=== PATIENT | female | born 1985 | race Asian ===

== ENCOUNTER 2019-11-12 06:16 | Inpatient (IN) | payer BC ==
[2019-11-12] MEDS ORDERED: Sodium Chloride 0.9% 10 ML Syringe FLUSH PRN (06:20)
[2019-11-12] MEDS ORDERED: Ondansetron 4 MG/2 ML SDV IVPUSH PRN (06:20)
[2019-11-12] MEDS ORDERED: Nalbuphine 10 MG/1 ML Vial IVPUSH PRN (06:20)
[2019-11-12] MEDS ORDERED: Lactated Ringers 1,000 ML IV SCH (06:30)
[2019-11-12] MEDS ORDERED: Oxytocin/Lactated Ringers 10 UNIT/1,000 ML BAG IV SCH ×3 (06:30→15:50)
[2019-11-12] MEDS ORDERED: Ampicillin 2 GM in Sodium Chloride 0.9% 100 ML IV ONE (07:00)
--- NOTE | 2019-11-12 08:49 | PCM.LDHP ---
L&D History of Present Illness - General Date of Service: 11/12/19 Admit Problem/Dx: Patient Status Order with Admit Dx/Problem 11/12/19 06:22 Patient Status [ADT] Routine Admission Diagnosis/Problem Admission Diagnosis/Problem Source of Information: Patient History Limitations: Reports: No Limitations - History of Present Illness Introduction:: Alecia Vogel is a 34-year-old -0-0-1 at 36 weeks 4 days (ARGENIS 12/06/2019) by LMP consistent with 7-week ultrasound who presents for evaluation of gross rupture of membranes. She noted that at around 5:30 AM she had a large gush of fluid and has continuous leaking of fluid since then. She reports that her contractions were somewhat irregular about every 10 minutes but they have been getting somewhat closer together and stronger since rupture of membranes. She has been feeling baby move with contractions but has not has felt significant movement outside of the contractions. She denies any other significant problems during the . Timing/Duration: Reports: sudden onset (At around 5:30 AM), intermittent ( Contractions about every 10 minutes) Location, : Reports: Lower back, Pelvic Quality: Reports: Throbbing Severity: Mild Improves with: Reports: None Worsens with: Reports: None Associated Symptoms: Reports: vaginal fluid, large amount. Denies: vaginal bleeding, vaginal discharge Present Illness Comments:: Alecia Vogel is a 34-year-old -0-0-1 at 36 weeks 4 days (ARGENIS 12/06/2019) by LMP consistent with a 7-week ultrasound. She has had routine care with Dr. Butt starting at 11 weeks gestational age. Her has been overall uncomplicated but she did have pelvic pressure throughout the . She had GBS bacteria found in the urine on 05/17/2019. She received the flu shot on 10/21/2019 and Tdap on 10/11/2019. She declined to have testing for STIs during this . Her has been complicated by: * GBS positive with GBS bacteria found in the urine on 05/17/2019 * First child with autism. Patient had a normal [facility] genetic screening testing performed. 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 [facility] history G1: 01/11/2012, of female at 40 weeks gestational age, weight 6 pounds 8 ounces, epidural for anesthesia, no complications during , child affected by autism G2: Current labs Blood type: B+ Antibody screen: Negative First trimester hematocrit/hemoglobin: 39.4%/13.8 on 05/17/2019 Platelets: 317 on 05/17/2019 Urine culture: GBS bacteriuria with 600 CFU Rubella status: Immune Hepatitis B surface antigen: Declined RPR: Negative HIV: Declined Gonorrhea: Declined Chlamydia: Declined Genetic testing: Normal [facility] genetic testing anatomy ultrasound: Normal anatomy, posterior placenta, no previa One hour glucose tolerance test: 70 Second trimester hematocrit/hemoglobin: 37.2%/12.9 on 08/31/2019 Platelets: 290 on 08/31/2019 GBS status: Positive with GBS bacteria from urine culture on 05/17/2019 - Related Data Allergies/Adverse Reactions: Allergies Allergy/AdvReac Type Severity Reaction Status Date / Time No Known Allergies Allergy Verified 11/12/19 06:32 Home Medications: Home Meds Mv-Mn/Iron/FA/Herbal/Digestive [ One Tablet] 1 each PO DAILY 11/12/19 [ History] Past Medical History [facility] MACH[employer] [facility]IR[facility] History: Reports: : 2 Para: 1 - Past Surgical History HEENT Surgical History: Reports: Oral Surgery (Frenulectomy) Other HEENT Surgeries/Procedures: frenotomy Social & Family History - Tobacco Use Smoking Status *Q: Never Smoker Second Hand Smoke Exposure: No - Tobacco Core Measures Tobacco Use/Smoking Within Last 30 Days: No Smokeless Tobacco Use in Last 30 Days: No - Alcohol Use Alcohol Use History: No - Recreational Drug Use Recreational Drug Use: No - Living Situation & Occupation Living situation: Reports: , with Spouse, with Family Occupation: Employed H&P Review of Systems - Review of Systems: Review Of Systems: See Below General: Denies: Fever, Chills, Malaise, Weakness, Fatigue HEENT: Denies: Rhinitis, Post Nasal Drip, Sinus Congestion, Sore Throat, Visual Changes Pulmonary: Denies: Shortness of Breath, Wheezing, Pleuritic Chest Pain, Cough Cardiovascular: Denies: Chest Pain, Palpitations, Dyspnea on Exertion, Orthopnea Gastrointestinal: Reports: Constipation. Denies: Abdominal Pain, Diarrhea, Nausea, Vomiting Genitourinary: Denies: Dysuria, Frequency, Burning, Pain, Urgency Skin: Reports: Other (Varicose veins in legs bilaterally). Denies: Rash, Lesions Psychiatric: Denies: Depression, Anxiety Neurological: Denies: Headache L&D Exam - Exam Exam: See Below - Vital Signs Vital Signs: Last Vital Signs Temp 36.3 C 11/12/19 06:22 Pulse 74 11/12/19 07:32 Resp 15 11/12/19 06:22 BP 127/80 11/12/19 06:22 Pulse Ox 100 11/12/19 06:22 Weight: 72.439 kg - OB Specific Contraction Duration (sec): 45-60 Contraction Frequency (min): 3-10 Contraction Intensity: Mild to Moderate Movement: Active Heart Tones: Present Heart Tones per Min: 135 (+15 x 15 accelerations, no decelerations) Presentation: Vertex Estimated Weight: 5 to 5.5 pounds by Stevenson - Frias Score Frias Score Cervix Position: Midposition Frias Score Consistency: Soft Frias Score Effacement: >80% (90%) Frias Score Dilation: 3-4 cm (4 cm) Frias Score Infant's Station: -2 Frias Score Total: 9 - Exam General: Alert, Oriented HEENT: Conjunctiva Clear, EOMI Neck: Supple, Trachea Midline Lungs: Clear to Auscultation, Normal Respiratory Effort Cardiovascular: Regular Rate, Regular Rhythm GI/Abdominal Exam: Soft, Non-Tender, No Distention, Other (Gravid). No: Guarding, Rigid, Rebound Extremities: Normal Inspection, Non-Tender, No Pedal Edema Skin: Warm, Dry, Intact Psychiatric: Alert, Normal Affect, Normal Mood - Patient Data Lab Results Last 24 hrs: Laboratory Results - last 24 hr 11/12/19 11/12/19 Range/Units 06:40 06:40 WBC 7.58 (3.98-10.04) K/mm3 RBC 4.22 (3.98-5.22) M/mm3 Hgb 12.4 (11.2-15.7) gm/dl Hct 36.8 (34.1-44.9) % MCV 87.2 D (79.4-94.8) fl MCH 29.4 (25.6-32.2) pg MCHC 33.7 (32.2-35.5) g/dl RDW Std Deviation 40.8 (36.4-46.3) fL Plt Count 253 (182-369) K/mm3 MPV 9.5 (9.4-12.3) fl Neut % (Auto) 75.5 H (34.0-71.1) % Lymph % (Auto) 16.9 L (19.3-51.7) % [place] % (Auto) 5.7 (4.7-12.5) % Eos % (Auto) 1.3 (0.7-5.8) Baso % (Auto) 0.1 (0.1-1.2) % Neut # (Auto) 5.72 (1.56-6.13) K/mm3 Lymph # (Auto) 1.28 (1.18-3.74) K/mm3 [place] # (Auto) 0.43 H (0.24-0.36) K/mm3 Eos # (Auto) 0.10 (0.04-0.36) K/mm3 Baso # (Auto) 0.01 (0.01-0.08) K/mm3 Blood Type B POSITIVE Gel Antibody Screen Negative Result Diagrams: 11/12/19 06:40 - Problem List (1) 36 weeks gestation of SNOMED Code(s): 73239074 ICD Code: Z3A.36 - 36 WEEKS GESTATION OF Status: Acute Current Visit: Yes (2) premature rupture of membranes SNOMED Code(s): 759370276, 840493097 ICD Code: O42.919 - PRETRM LUCAS ROM, UNSP TIME BETW RUPT AND ONST LABR, UNSP TRI Status: Acute Current Visit: Yes (3) ancestry requiring population-specific screening for genetic disorder SNOMED Code(s): 15373327, 475668419, 241051385 ICD Code: Z13.9 - ENCOUNTER FOR SCREENING, UNSPECIFIED Status: Acute Current Visit: Yes (4) GBS bacteriuria SNOMED Code(s): 45496958 ICD Code: R82.71 - BACTERIURIA Status: Acute Current Visit: Yes Problem List Initiated/Reviewed/Updated: Yes Orders Last 24hrs: Active Orders 24 hr Category Date Time Status Patient Status [ADT] Routine ADT 11/12/19 06:22 Active Activity as Tolerated [RC] PFP Care 11/12/19 06:22 Active Communication Order [RC] ASDIRECTED Care 11/12/19 06:22 Active Peripheral IV Care [RC] . DIRECTED Care 11/12/19 06:22 Active Vital Signs [RC] PER UNIT ROUTINE Care 11/12/19 06:22 Active Regular Diet [DIET] Diet 11/12/19 Breakfast Active RAPID PLASMA REAGIN,RPR [CHEM] Stat Lab 11/12/19 06:40 Received Ampicillin 1 gm Med 11/12/19 11:00 Active Sodium Chloride 0.9% [Normal Saline] 100 ml IV Q4H Lactated Ringers [Ringers, Lactated] 1,000 ml Med 11/12/19 06:30 Active IV ASDIRECTED Nalbuphine [Nubain] Med 11/12/19 06:20 Active 10 mg IVPUSH Q2H PRN Ondansetron [Zofran] Med 11/12/19 06:20 Active 4 mg IVPUSH Q4H PRN Oxytocin/Lactated Ringers [Pitocin in LR 10 Units/1,000 Med 11/12/19 06:30 Active ML] 10 unit in 1,000 ml IV .CONTINUOUS Oxytocin/Lactated Ringers [Pitocin in LR 10 Units/1,000 Med 11/12/19 06:30 Active ML] 10 unit in 1,000 ml IV TITRATE Sodium Chloride 0.9% [Saline Flush] Med 11/12/19 06:20 Active 10 ml FLUSH ASDIRECTED PRN Electronic Heart Tones Ext w TOCO [WOMSER] Oth 11/12/19 06:22 Ordered Routine Electronic Heart Tones Internal [WOMSER] Per Unit Oth 11/12/19 06:22 Ordered Routine Peripheral IV Insertion Adult [OM.PC] Routine Oth 11/12/19 06:22 Ordered Resuscitation Status Routine Resus Stat 11/12/19 06:20 Ordered Medication Orders Ampicillin Sodium 1 gm/ Sodium (Chloride) 100 mls @ 200 mls/hr IV Q4H CISCO Lactated Ringer's (Ringers, Lactated) 1,000 mls @ 100 mls/hr IV ASDIRECTED CISCO Oxytocin/Lactated Ringer's (Pitocin In Lr 10 Units/1,000 Ml) 10 unit in 1,000 mls @ 100 mls/hr IV .CONTINUOUS CISCO Oxytocin/Lactated Ringer's (Pitocin In Lr 10 Units/1,000 Ml) 10 unit in 1,000 mls @ 12 mls/hr IV TITRATE CISCO; Protocol Nalbuphine HCl (Nubain) 10 mg IVPUSH Q2H PRN PRN Reason: Pain Ondansetron HCl (Zofran) 4 mg IVPUSH Q4H PRN PRN Reason: Nausea/Vomiting Sodium Chloride (Saline Flush) 10 ml FLUSH ASDIRECTED PRN PRN Reason: Keep Vein Open Assessment/Plan Comment:: Refer to observation for prelabor rupture of membranes Start Pitocin for augmentation of labor if patient continues to have infrequent contractions after several hours of monitoring Continuous monitoring Place IV and have Lactated Ringer's at 125 ml/hr May have small amounts of regular diet Activity as tolerated May have epidural as desired Plans to breast-feed after delivery Start on ampicillin 2 g now and have 1 g every 4 hours after for GBS prophylaxis Anticipate vaginal delivery unless otherwise indicated Beck Sanders MD 9:02 AM 11/12/2019
[2019-11-12] MEDS: Ampicillin 1 GM in Sodium Chloride 0.9% 100 ML IV SCH ×2 (10:58→20:29)
[2019-11-12] MEDS ORDERED: Lidocaine 1% 50 ML MDV ONE (13:45)
--- NOTE | 2019-11-12 15:48 | PCM.DEL ---
L & D Note - General Info Date of Service: 11/12/19 Mother's Due Date: 12/06/19 - Delivery Note Labor: Spontaneous, Augmented by Oxytocin Delivery Outcome: Livebirth Infant Delivery Method: Spontaneous Vaginal Delivery-Single Presentation: Left Occiput Anterior (ELIZABETH) Nuchal Cord: None Prep: Povidone-Iodine (Betadine Anesthesia Type: Local (during repair of lacerations) Local Anesthetic Volume: Other (10 ml) Amniotic Fluid Description: Clear Episiotomy Type: None Laceration: Perineal (first degree midline repaired with 3-0 Vicryl), Periurethral (Bilateral periurethral lacerations repaired with 4-0 Vicryl) Suture type: Vicryl Suture size: 3-0 Placenta: Intact, Spontaneous Cord: 3 Vessels Estimated Blood Loss: 200 Resuscitation Needed: Yes [place]: Bulb Syringe, Cathether, Stimulated, Warmed, [place] Used Provider: Beck Sanders Score 1 min: 9 Score 5 min: 9 Second Stage Interventions: Reports: Pushing Effectively, Pushing, Pulls Own Legs Back Delivery Comments (Free Text/Narrative):: Stage I: Alecia Vogel was admitted for prelabor rupture of membranes with grossly ruptured amniotic sac on pelvic exam. On admission her cervix was dilated to 4 cm. She was GBS positive by GBS bacteriuria and was started on ampicillin for GBS prophylaxis. She received a total of 2 doses prior to delivery. She had spacing out of her contractions and was started on Pitocin for augmentation of labor. She progressed to complete and pushing. Stage II: On 11/12/2019 she had a normal vaginal delivery of a live male at 13:43. Apgars of 9 & 9. Weight of 2820 g (6 Lbs 3.5 oz). Length of 20 inches. There was no nuchal cord. Infant was delivered in ELIZABETH position. The cord was doubly clamped and cut by father of the infant. Infant was placed on mother's abdomen. Stage III: She had a spontaneous delivery of an intact placenta in [place] presentation. Three vessel cord. She was given pitocin and fundal massage. She had first-degree midline perineal laceration that was repaired with 3-0 Vicryl. She had bilateral periurethral lacerations that were repaired with running suture of 4-0 Vicryl. Mom and baby were stable to recovery. EBL of 200 mL. Beck Sanders MD 3:40 PM 11/12/2019 - General Info Date of Service: 11/12/19 - Patient Data Vitals - Most Recent: Last Vital Signs Temp 36.3 C 11/12/19 06:22 Pulse 74 11/12/19 07:32 Resp 15 11/12/19 06:22 BP 127/80 11/12/19 06:22 Pulse Ox 100 11/12/19 06:22 Weight - Most Recent: 72.439 kg I&O - Last 24 Hours: Intake & Output 11/12/19 11/12/19 11/12/19 06:59 14:59 22:59 Intake Total 120 1900 Balance 120 1900 Lab Results Last 24 Hours: Laboratory Results - last 24 hr 11/12/19 11/12/19 Range/Units 06:40 06:40 WBC 7.58 (3.98-10.04) K/mm3 RBC 4.22 (3.98-5.22) M/mm3 Hgb 12.4 (11.2-15.7) gm/dl Hct 36.8 (34.1-44.9) % MCV 87.2 D (79.4-94.8) fl MCH 29.4 (25.6-32.2) pg MCHC 33.7 (32.2-35.5) g/dl RDW Std Deviation 40.8 (36.4-46.3) fL Plt Count 253 (182-369) K/mm3 MPV 9.5 (9.4-12.3) fl Neut % (Auto) 75.5 H (34.0-71.1) % Lymph % (Auto) 16.9 L (19.3-51.7) % [place] % (Auto) 5.7 (4.7-12.5) % Eos % (Auto) 1.3 (0.7-5.8) Baso % (Auto) 0.1 (0.1-1.2) % Neut # (Auto) 5.72 (1.56-6.13) K/mm3 Lymph # (Auto) 1.28 (1.18-3.74) K/mm3 [place] # (Auto) 0.43 H (0.24-0.36) K/mm3 Eos # (Auto) 0.10 (0.04-0.36) K/mm3 Baso # (Auto) 0.01 (0.01-0.08) K/mm3 Blood Type B POSITIVE Gel Antibody Screen Negative Med Orders - Current: Current Medications Ampicillin Sodium 1 gm/ Sodium (Chloride) 100 mls @ 200 mls/hr IV Q4H CISCO Last Admin: 11/12/19 10:58 Dose: 200 mls/hr Lactated Ringer's (Ringers, Lactated) 1,000 mls @ 100 mls/hr IV ASDIRECTED CISCO Last Admin: 11/12/19 10:39 Dose: 100 mls/hr Oxytocin/Lactated Ringer's (Pitocin In Lr 10 Units/1,000 Ml) 10 unit in 1,000 mls @ 100 mls/hr IV .CONTINUOUS CISCO Oxytocin/Lactated Ringer's (Pitocin In Lr 10 Units/1,000 Ml) 10 unit in 1,000 mls @ 12 mls/hr IV TITRATE CISCO; Protocol Last Titration: 11/12/19 12:32 Dose: 8 munits/min, 48 mls/hr Nalbuphine HCl (Nubain) 10 mg IVPUSH Q2H PRN PRN Reason: Pain Ondansetron HCl (Zofran) 4 mg IVPUSH Q4H PRN PRN Reason: Nausea/Vomiting Sodium Chloride (Saline Flush) 10 ml FLUSH ASDIRECTED PRN PRN Reason: Keep Vein Open Discontinued Medications Ampicillin Sodium 2 gm/ Sodium (Chloride) 100 mls @ 200 mls/hr IV ONETIME ONE Stop: 11/12/19 07:29 Last Admin: 11/12/19 06:51 Dose: 200 mls/hr Lidocaine HCl (Xylocaine 1%) Confirm Administered Dose 50 ml .ROUTE .STK-MED ONE Stop: 11/12/19 13:46 - Problem List & Annotations (1) 36 weeks gestation of SNOMED Code(s): 56753304 Code(s): Z3A.36 - 36 WEEKS GESTATION OF Status: Acute Current Visit: Yes (2) premature rupture of membranes SNOMED Code(s): 424615202, 441519089 Code(s): O42.919 - PRETRM LUCAS ROM, UNSP TIME BETW RUPT AND ONST LABR, UNSP TRI Status: Acute Current Visit: Yes (3) ancestry requiring population-specific screening for genetic disorder SNOMED Code(s): 71740935, 737844570, 165963787 Code(s): Z13.9 - ENCOUNTER FOR SCREENING, UNSPECIFIED Status: Acute Current Visit: Yes (4) GBS bacteriuria SNOMED Code(s): 90879215 Code(s): R82.71 - BACTERIURIA Status: Acute Current Visit: Yes (5) delivery SNOMED Code(s): 194683176, 845456781 Code(s): O60.10X0 - LABOR W DELIVERY, UNSP TRIMESTER, UNSP Status: Acute Current Visit: Yes (6) Vaginal delivery SNOMED Code(s): 417057559 Code(s): O80 - ENCOUNTER FOR FULL-TERM UNCOMPLICATED DELIVERY Status: Acute Current Visit: Yes (7) First degree perineal laceration during delivery SNOMED Code(s): 905405642 Code(s): O70.0 - FIRST DEGREE PERINEAL LACERATION DURING DELIVERY Status: Acute Current Visit: Yes (8) Laceration of periurethral tissue with delivery SNOMED Code(s): 766252966, 105296093 Code(s): O71.89 - OTHER SPECIFIED OBSTETRIC TRAUMA Status: Acute Current Visit: Yes - Problem List Review Problem List Initiated/Reviewed/Updated: Yes - My Orders Last 24 Hours: My Active Orders 11/12/19 06:20 Nalbuphine [Nubain] 10 mg IVPUSH Q2H PRN Ondansetron [Zofran] 4 mg IVPUSH Q4H PRN Sodium Chloride 0.9% [Saline Flush] 10 ml FLUSH ASDIRECTED PRN Resuscitation Status Routine 11/12/19 06:22 Patient Status [ADT] Routine Activity as Tolerated [RC] PFP Communication Order [RC] ASDIRECTED Peripheral IV Care [RC] . DIRECTED Vital Signs [RC] 03,09,15,21 Electronic Heart Tones Ext w TOCO [WOMSER] Routine Electronic Heart Tones Internal [WOMSER] Per Unit Routine Peripheral IV Insertion Adult [OM.PC] Routine 11/12/19 06:30 Lactated Ringers [Ringers, Lactated] 1,000 ml IV ASDIRECTED Oxytocin/Lactated Ringers [Pitocin in LR 10 Units/1,000 ML] 10 unit in 1,000 ml IV .CONTINUOUS Oxytocin/Lactated Ringers [Pitocin in LR 10 Units/1,000 ML] 10 unit in 1,000 ml IV TITRATE 11/12/19 06:40 RAPID PLASMA REAGIN,RPR [CHEM] Stat 11/12/19 11:00 Ampicillin 1 gm Sodium Chloride 0.9% [Normal Saline] 100 ml IV Q4H 11/12/19 15:22 Patient Status Manage Transfer [TRANSFER] Routine 11/12/19 Breakfast Regular Diet [DIET] - Plan Plan:: Admit to inpatient following spontaneous vaginal delivery Continue Pitocin per unit protocol following delivery of placenta and lactated Ringer's until tolerating regular diet Regular diet Vitals per unit routine Ibuprofen and Tylenol for pain control Assist with breast-feeding as needed Continue to monitor lochia Anticipate discharge home on day #1 or #2 depending on status Beck Sanders MD 3:40 PM 11/12/2019
[2019-11-12] MEDS ORDERED: Docusate Sodium 100 MG Cap PO PRN (15:50)
[2019-11-12] MEDS ORDERED: Witch Hazel Medicated Pads 40/Jar TOP PRN (15:50)
[2019-11-12] MEDS ORDERED: Benzocaine/Menthol 20%-0.5% Spray 56 GM Canister TOP PRN (15:50)
[2019-11-12] MEDS ORDERED: Hydrocortisone Acetate 25 MG Supp RECTAL PRN (15:50)
[2019-11-12] MEDS ORDERED: Ibuprofen 600 MG Tab PO PRN (15:50)
[2019-11-12] MEDS ORDERED: Acetaminophen 325 MG Tab PO PRN (15:50)
--- NOTE | 2019-11-13 08:31 | PCM.SN ---
- Free Text/Narrative Note: Post Progress Note PPD # 1 Subjective: Doing well overall. Ambulating without difficulty. Lochia minimal. Voiding without difficulty. Tolerating regular diet without nausea or vomiting. Pain controlled with oral medications. Breast-feeding with minimal difficulty. Objective: Vitals: Vital Signs - 24 hr 11/12/19 11/13/19 20:57 02:56 Temperature 36.8 C 36.6 C Pulse, 73 62 Peripheral Respiratory 15 16 Rate Blood Pressure 118/58 L 99/44 L O2 Sat by Pulse 98 100 Oximetry Physical Exam General: Alert and oriented, no acute distress Lungs: Clear to auscultation bilaterally Heart: Regular rate and rhythm Abdomen: Soft, minimal appropriate tenderness, non-distended, fundus midline, nontender, and 1 fingerbreadth below the umbilicus Extremities: No edema ASSESSMENT: 34-year-old female -1-0-2 s/p vaginal delivery PPD #1, complicated by GBS positive and received 2 doses of ampicillin prior to delivery and ancestry PLAN: Doing well Breast-feeding with minimal difficulty. Assist as needed Lochia minimal. Continue to monitor for appropriate lochia. Continue routine care Desires discharge home today Beck Sanders MD 8:32 AM 11/13/2019
--- NOTE | 2019-11-13 08:44 | PCM.DCSUM1 ---
Discharge Summary - Hospital Course Free Text/Narrative:: Stage I: Alecia Vogel was admitted for prelabor rupture of membranes with grossly ruptured amniotic sac on pelvic exam. On admission her cervix was dilated to 4 cm. She was GBS positive by GBS bacteriuria and was started on ampicillin for GBS prophylaxis. She received a total of 2 doses prior to delivery. She had spacing out of her contractions and was started on Pitocin for augmentation of labor. She progressed to complete and pushing. Stage II: On 11/12/2019 she had a normal vaginal delivery of a live male at 13:43. Apgars of 9 & 9. Weight of 2820 g (6 Lbs 3.5 oz). Length of 20 inches. There was no nuchal cord. Infant was delivered in ELIZABETH position. The cord was doubly clamped and cut by father of the . Infant was placed on mother's abdomen. Stage III: She had a spontaneous delivery of an intact placenta in [place] presentation. Three vessel cord. She was given pitocin and fundal massage. She had first-degree midline perineal laceration that was repaired with 3-0 Vicryl. She had bilateral periurethral lacerations that were repaired with running suture of 4-0 Vicryl. Mom and baby were stable to recovery. EBL of 200 mL. HPI Initial Comments: Stage I: Alecia Vogel was admitted for prelabor rupture of membranes with grossly ruptured amniotic sac on pelvic exam. On admission her cervix was dilated to 4 cm. She was GBS positive by GBS bacteriuria and was started on ampicillin for GBS prophylaxis. She received a total of 2 doses prior to delivery. She had spacing out of her contractions and was started on Pitocin for augmentation of labor. She progressed to complete and pushing. Stage II: On 11/12/2019 she had a normal vaginal delivery of a live male at 13:43. Apgars of 9 & 9. Weight of 2820 g (6 Lbs 3.5 oz). Length of 20 inches. There was no nuchal cord. was delivered in ELIZABETH position. The cord was doubly clamped and cut by father of the infant. was placed on mother's abdomen. Stage III: She had a spontaneous delivery of an intact placenta in [place] presentation. Three vessel cord. She was given pitocin and fundal massage. She had first-degree midline perineal laceration that was repaired with 3-0 Vicryl. She had bilateral periurethral lacerations that were repaired with running suture of 4-0 Vicryl. Mom and baby were stable to recovery. EBL of 200 mL. Brief History: Stage I: Alecia Vogel was admitted for prelabor rupture of membranes with grossly ruptured amniotic sac on pelvic exam. On admission her cervix was dilated to 4 cm. She was GBS positive by GBS bacteriuria and was started on ampicillin for GBS prophylaxis. She received a total of 2 doses prior to delivery. She had spacing out of her contractions and was started on Pitocin for augmentation of labor. She progressed to complete and pushing. Stage II: On 11/12/2019 she had a normal vaginal delivery of a live male at 13:43. Apgars of 9 & 9. Weight of 2820 g (6 Lbs 3.5 oz). Length of 20 inches. There was no nuchal cord. was delivered in ELIZABETH position. The cord was doubly clamped and cut by father of the . was placed on mother's abdomen. Stage III: She had a spontaneous delivery of an intact placenta in [place] presentation. Three vessel cord. She was given pitocin and fundal massage. She had first-degree midline perineal laceration that was repaired with 3-0 Vicryl. She had bilateral periurethral lacerations that were repaired with running suture of 4- 0 Vicryl. Mom and baby were stable to recovery. EBL of 200 mL. Diagnosis: Stroke: No - Discharge Data Discharge Date: 11/13/19 Discharge Disposition: Home, Self-Care 01 Condition: Good - Referral to Home Health Primary Care Physician: Bobo Butt MD - Discharge Diagnosis/Problem(s) (1) 36 weeks gestation of SNOMED Code(s): 52494687 ICD Code: Z3A.36 - 36 WEEKS GESTATION OF Status: Acute Current Visit: Yes (2) premature rupture of membranes SNOMED Code(s): 745465051, 247994351 ICD Code: O42.919 - PRETRM LUCAS ROM, UNSP TIME BETW RUPT AND ONST LABR, UNSP TRI Status: Acute Current Visit: Yes (3) ancestry requiring population-specific screening for genetic disorder SNOMED Code(s): 20108325, 708791411, 506634139 ICD Code: Z13.9 - ENCOUNTER FOR SCREENING, UNSPECIFIED Status: Acute Current Visit: Yes (4) GBS bacteriuria SNOMED Code(s): 80587778 ICD Code: R82.71 - BACTERIURIA Status: Acute Current Visit: Yes (5) delivery SNOMED Code(s): 520519259, 481675857 ICD Code: O60.10X0 - LABOR W DELIVERY, UNSP TRIMESTER, UNSP Status: Acute Current Visit: Yes (6) Vaginal delivery SNOMED Code(s): 211294324 ICD Code: O80 - ENCOUNTER FOR FULL-TERM UNCOMPLICATED DELIVERY Status: Acute Current Visit: Yes (7) First degree perineal laceration during delivery SNOMED Code(s): 523282755 ICD Code: O70.0 - FIRST DEGREE PERINEAL LACERATION DURING DELIVERY Status: Acute Current Visit: Yes (8) Laceration of periurethral tissue with delivery SNOMED Code(s): 118775129, 877246755 ICD Code: O71.89 - OTHER SPECIFIED OBSTETRIC TRAUMA Status: Acute Current Visit: Yes - Patient Summary/Data Complications: None Consults: [facility] Hospital Course: Alecia Vogel was admitted for prelabor rupture of membranes with grossly ruptured membranes on physical exam.she had a large amount of clear fluid coming from the vagina on physical exam. On admission her cervix was dilated to 4 cm. She was GBS positive by GBS bacteria and was started on ampicillin for GBS prophylaxis. She received a total of 2 doses of ampicillin prior to delivery. She was given pitocin for augmentation. She progressed to complete and began pushing. On 11/12/2019 she had a normal vaginal delivery of a live male at 13:43. Apgars of 9 and 9. Weight of 2820 g ( 6 pounds 3.5 ounces). Her course was uneventful. Her pain was well controlled and she had minimal lochia. She was ambulating, tolerating a regular diet and voiding normally. She was breast-feeding with minimal difficulty. She was afebrile and her hematocrit was 36.8 on admission. She desired to be discharged home on the morning of PPD #1. Her blood type is B+. - Patient Instructions Diet: Regular Diet as Tolerated Activity: Apply Ice, As Tolerated Activity, Other: Nothing in the vagina for 6 weeks Driving: May Drive Today Showering/Bathing: May Shower Notify Provider of: Fever, Increased Pain, Swelling and Redness, Drainage, Nausea and/or Vomiting Other/Special Instructions: Please contact your physician's office if you have heavy vaginal bleeding enough to soak a pad in less than an hour for several hours. Monitor for any signs of an infection in the breasts with severe pain or redness of the breast. - Discharge Plan *PRESCRIPTION DRUG MONITORING PROGRAM REVIEWED*: Not Applicable *COPY OF PRESCRIPTION DRUG MONITORING REPORT IN PATIENT ASAD: Not Applicable Home Medications: Home Meds Mv-Mn/Iron/FA/Herbal/Digestive [ One Tablet] 1 each PO DAILY 11/12/19 [ History] Acetaminophen [Tylenol] 650 mg PO Q6H PRN tablet 11/13/19 [Rx] Benzocaine/Menthol [Dermoplast Pain Relief [place]] 1 spray TOP ASDIRECTED PRN canister 11/13/19 [Rx] Docusate Sodium [Colace] 100 mg PO BID PRN cap 11/13/19 [Rx] Hydrocortisone Acetate [Anucort-HC] 25 mg RECTAL BID PRN supp 11/13/19 [Rx] Ibuprofen [Motrin] 600 mg PO Q6H PRN tablet 11/13/19 [Rx] Witch Nina [Tucks] 1 pad TOP ASDIRECTED PRN pad 11/13/19 [Rx] Patient Handouts: Home Care Instructions for Mom, Vaginal Delivery, Care After , Care of a Perineal Tear Referrals: Bobo Butt MD [Primary Care Provider] - (Follow-up in 2 to 3 weeks for routine visit or earlier as needed.) - Discharge Summary/Plan Comment DC Time >30 min.: No - Patient Data Vitals - Most Recent: Last Vital Signs Temp 36.6 C 11/13/19 02:56 Pulse 62 11/13/19 02:56 Resp 16 11/13/19 02:56 BP 99/44 L 11/13/19 02:56 Pulse Ox 100 11/13/19 02:56 Weight - Most Recent: 72.439 kg I&O - Last 24 hours: Intake & Output 11/12/19 11/13/19 11/13/19 22:59 06:59 14:59 Intake Total 1900 Balance 1900 Med Orders - Current: Current Medications Acetaminophen (Tylenol) 650 mg PO Q6H PRN PRN Reason: mild pain or fever Benzocaine/Menthol (Dermoplast Pain Relief [place]) 0 gm TOP ASDIRECTED PRN PRN Reason: Perineal Comfort Measure Last Admin: 11/12/19 18:09 Dose: 1 can Docusate Sodium (Colace) 100 mg PO BID PRN PRN Reason: Constipation Hydrocortisone Acetate (Anucort-Hc) 25 mg RECTAL BID PRN PRN Reason: Hemorrhoid pain Oxytocin/Lactated Ringer's (Pitocin In Lr 10 Units/1,000 Ml) 10 unit in 1,000 mls @ 100 mls/hr IV TITRATE CISCO; Protocol Ibuprofen (Motrin) 600 mg PO Q6H PRN PRN Reason: Mild pain or fever Last Admin: 11/12/19 21:00 Dose: 600 mg Prenat Multivit/[place]/Iron/Folic Ac ( Plus Iron) 1 each PO DAILY [facility] Chanell Wood (Tucks) 1 pad TOP ASDIRECTED PRN PRN Reason: Perineal Comfort Measure Last Admin: 11/12/19 18:09 Dose: 1 tub Discontinued Medications Ampicillin Sodium 2 gm/ Sodium (Chloride) 100 mls @ 200 mls/hr IV ONETIME ONE Stop: 11/12/19 07:29 Last Admin: 11/12/19 06:51 Dose: 200 mls/hr Ampicillin Sodium 1 gm/ Sodium (Chloride) 100 mls @ 200 mls/hr IV Q4H CISCO Last Admin: 11/12/19 20:29 Dose: Not Given Lactated Ringer's (Ringers, Lactated) 1,000 mls @ 100 mls/hr IV ASDIRECTED CISCO Last Admin: 11/12/19 10:39 Dose: 100 mls/hr Oxytocin/Lactated Ringer's (Pitocin In Lr 10 Units/1,000 Ml) 10 unit in 1,000 mls @ 100 mls/hr IV .CONTINUOUS CISCO Oxytocin/Lactated Ringer's (Pitocin In Lr 10 Units/1,000 Ml) 10 unit in 1,000 mls @ 12 mls/hr IV TITRATE CISCO; Protocol Last Titration: 11/12/19 12:32 Dose: 8 munits/min, 48 mls/hr Lidocaine HCl (Xylocaine 1%) Confirm Administered Dose 50 ml .ROUTE .STK-nubelo ONE Stop: 11/12/19 13:46 Last Admin: 11/12/19 20:29 Dose: Not Given Nalbuphine HCl (Nubain) 10 mg IVPUSH Q2H PRN PRN Reason: Pain Ondansetron HCl (Zofran) 4 mg IVPUSH Q4H PRN PRN Reason: Nausea/Vomiting Sodium Chloride (Saline Flush) 10 ml FLUSH ASDIRECTED PRN PRN Reason: Keep Vein Open
[2019-11-13] MEDS ORDERED: Prenatal Multivitamin with Calcium/Folic Acid/Iron Tab PO SCH (09:00)
== END 2019-11-13 09:39 | disposition home or self-care (01) | DRG 560 ==
LOC: JD.OBCHECK 06:16 → JD.OB 06:16 → JD.OBCHECK 06:21 → JD.OB 06:22 → OBSVTOIN 13:43 → JD.OB 13:49
PROVIDERS: ADMIT Obstetrics & Gynecology; ATTEND Obstetrics & Gynecology
PROC: 10E0XZZ Delivery of Products of Conception, External Approach (ICD-10-PCS; principal; 2019-11-12)
PROC: 0HQ9XZZ Repair Perineum Skin, External Approach (ICD-10-PCS; 2019-11-12)
PROC: 0UQMXZZ Repair Vulva, External Approach (ICD-10-PCS; 2019-11-12)
DX: O60.14X0 Preterm labor third trimester with preterm delivery third trimester, not applicable or unspecified (principal); O99.824 Streptococcus B carrier state complicating childbirth; O99.89 Other specified diseases and conditions complicating pregnancy, childbirth and the puerperium; R82.71 Bacteriuria; O70.0 First degree perineal laceration during delivery; O71.82 Other specified trauma to perineum and vulva; Z3A.36 36 weeks gestation of pregnancy; Z37.0 Single live birth; Z13.9 Encounter for screening, unspecified
CPT/HCPCS: 36415; 59025; 59409; 85025; 86592; 86850; 86900; 86901; 87340; A9270-GY; J0290; J2590; J7050; J7120

== ENCOUNTER 2023-06-16 11:54 | Emergency (ER) | payer OTHER ==
[2023-06-16 12:51] LABS: BASOPHILS ABSOLUTE AUTO 0.01 K/mm3 (0.01-0.08); BASOPHILS PERCENT AUTO 0.2 % (0.1-1.2); EOSINOPHILS ABSOLUTE AUTO 0.02 K/mm3 (0.04-0.36); EOSINOPHILS PERCENT AUTO 0.4 (0.7-5.8); HEMOGLOBIN 13.8 gm/dl (11.2-15.7); IMMATURE GRAN ABSOLUTE AUTO 0.01 K/mm3 (0.00-0.10); IMMATURE GRAN PERCENT AUTO 0.2 % (<=1.0); LYMPHOCYTES PERCENT AUTO 28.6 % (19.3-51.7); MEAN CORPUSCULAR HEMOGLOBIN 30.3 pg (25.6-32.2); MEAN CORPUSCULAR HGB CONC 34.5 g/dl (32.2-35.5); MEAN CORPUSCULAR VOLUME 87.9 fl (79.4-94.8); MEAN PLATELET VOLUME 9.1 fl (9.4-12.3); MONOCYTES ABSOLUTE AUTO 0.37 K/mm3 (0.24-0.36); MONOCYTES PERCENT AUTO 7.6 % (4.7-12.5); NEUTROPHILS ABSOLUTE AUTO 3.09 K/mm3 (1.56-6.13); PLATELET COUNT,PLT 308 K/mm3 (182-369); RED BLOOD CELL COUNT 4.55 M/mm3 (3.98-5.22)
[2023-06-16 13:28] LABS: A/G RATIO 1.2 (1-2); ALANINE AMINOTRANSFERASE,ALT 22 U/L (14-59); ALKALINE PHOSPHATASE 47 U/L (46-116); ANION GAP 10.2 (5-15); ASPARTATE AMNIOTRANSFERASE,AST 15 U/L (15-37); BILIRUBIN TOTAL 0.8 mg/dL (0.2-1.0); BLOOD UREA NITROGEN,BUN 9 mg/dL (7-18); CALCIUM 8.5 mg/dL (8.5-10.1); CARBON DIOXIDE,CO2 30 mEq/L (21-32); CHLORIDE,CL 104 mEq/L (98-107); CREATININE 0.6 mg/dL (0.55-1.02); EST CRCL DRUG DOSING (CG) 115.52 mL/min; ESTIMATED GFR 118 mL/min (>60); GLUCOSE RANDOM 99 mg/dL (70-99); POTASSIUM,K 3.2 mEq/L (3.5-5.1); PROTEIN TOTAL,TP 7.4 g/dl (6.4-8.2); SODIUM,NA 141 mEq/L (136-145)
[2023-06-16 13:34] LABS: TROPONIN I HIGH SENSITIVITY < 4 pg/mL (<=51)
[2023-06-16] MEDS ORDERED: Potassium Chloride 20 MEQ Tab.ER PO ONE (14:24)
== END 2023-06-16 14:45 | disposition home or self-care (01) ==
LOC: JD.ED 11:54
DX: R07.89 Other chest pain (principal)
CPT/HCPCS: 36415; 71046; 80053; 83735; 83880; 84484; 85025; 85379; 93005; 99285; A9270; 93010; 99283

== ENCOUNTER 2024-12-14 07:43 | Day surgery (SDC) | payer OTHER ==
[~2024-12-14 07:43] MED LIST: Sodium Chloride 0.9% 10 ML Syringe FLUSH PRN; Sodium Chloride 0.9% 10 ML Syringe FLUSH SCH
[2024-12-14] MEDS: Lactated Ringers 1,000 ML IV SCH (08:05)
[2024-12-14] MEDS ORDERED: fentaNYL 100 MCG/2 ML SDV ONE (08:16)
[2024-12-14] MEDS ORDERED: Midazolam 1 MG/ML 2 ML SDV ONE (08:16)
[2024-12-14] MEDS ORDERED: Propofol 200 MG/20 ML SDV ONE ×2 (08:17→09:10)
[2024-12-14] MEDS ORDERED: Ondansetron 4 MG/2 ML SDV IVPUSH PRN (08:36)
[2024-12-14] MEDS ORDERED: HYDROmorphone 0.5 MG/0.5 ML Syringe IVPUSH PRN (08:36)
[2024-12-14] MEDS ORDERED: fentaNYL 100 MCG/2 ML SDV IVPUSH PRN (08:36)
== END 2024-12-14 10:19 | disposition home or self-care (01) ==
LOC: JD.SDS 07:43
PROVIDERS: ATTEND Surgery
DX: K64.4 Residual hemorrhoidal skin tags (principal); K21.9 Gastro-esophageal reflux disease without esophagitis; I83.93 Asymptomatic varicose veins of bilateral lower extremities
CPT/HCPCS: 43239; 45378; J2250; J2704; J3010; J7120; 00813